=== PATIENT | female | born 1985 | race Caucasian/White ===

== ENCOUNTER 2016-06-05 00:39 | Outpatient (CLI) | payer MEDICAID ==
[~2016-06-05] VITALS: Ht 165.1 cm; Wt 51.8 kg
[2016-06-05 00:55] LABS: DAU SCREEN DISCLAIMER
[2016-06-05 01:11] LABS: PATH.CAST-FLAG NOT PRESENT; SPERM-FLAG NOT PRESENT; SRC-FLAG NOT PRESENT; XTAL-FLAG NOT PRESENT; YLC-FLAG NOT PRESENT
== END 2016-06-05 01:30 | disposition home or self-care (01) ==
LOC: LDOP 00:39
PROVIDERS: ATTEND Obstetrics & Gynecology
DX: O26.893 Other specified pregnancy related conditions, third trimester (principal); R10.31 Right lower quadrant pain; R10.32 Left lower quadrant pain; Z3A.00 Weeks of gestation of pregnancy not specified
CPT/HCPCS: 59025; 80307; 81003; 87077; 87086; 87186; 99201; G0463

== ENCOUNTER 2016-09-14 11:57 | Emergency (ER) | payer MEDICAID ==
[~2016-09-14] VITALS: Ht 165.1 cm; Wt 59.1 kg
[2016-09-14 11:59] VITALS: BP 116/79
== END 2016-09-14 13:57 | disposition home or self-care (01) ==
LOC: ED 13:51
DX: S92.351A Displaced fracture of fifth metatarsal bone, right foot, initial encounter for closed fracture (principal); X50.1XXA Overexertion from prolonged static or awkward postures, initial encounter; Y93.89 Activity, other specified; Y92.410 Unspecified street and highway as the place of occurrence of the external cause; Y99.8 Other external cause status
CPT/HCPCS: 99284

== ENCOUNTER 2017-02-16 08:39 | Emergency (ER) | payer MEDICAID ==
[~2017-02-16] VITALS: Ht 165.1 cm; Wt 50.6 kg
[~2017-02-16 08:39] MED LIST: ACYC-114 PO; HYDR-3240 PO; IBUP-1222 PO; SENN-52 PO
[2017-02-16 08:40] VITALS: BP 133/91
[2017-02-16] MEDS ORDERED: LIDOCAINE 1%, 10ML ONE (09:23)
[2017-02-16] MEDS ORDERED: LIDOCAINE 1%, 20ML INFIL ONE (09:30)
== END 2017-02-16 10:25 | disposition home or self-care (01) ==
LOC: ED 10:20
DX: S90.212A Contusion of left great toe with damage to nail, initial encounter (principal); W20.8XXA Other cause of strike by thrown, projected or falling object, initial encounter; Y93.89 Activity, other specified; Y92.098 Other place in other non-institutional residence as the place of occurrence of the external cause; Y99.8 Other external cause status
CPT/HCPCS: 11740